=== PATIENT | male | born 1950 ===

== ENCOUNTER 2023-07-13 04:04 | Day surgery (SDC) | payer OTHER ==
[2023-07-09 12:53] VITALS: BMI 29.0
[2023-07-13] MEDS ORDERED: VANCOMYCIN/WATER FOR INJ (PEG) 1,000 MG/200 ML BAG IVPB ONE (11:14)
[2023-07-13] MEDS: VANCOMYCIN/WATER FOR INJ (PEG) 1,000 MG/200 ML BAG IVPB ONE (11:40)
[2023-07-13] MEDS ORDERED: GENTAMICIN SO4 80 MG/2 ML VIAL ONE (12:33)
[2023-07-13] MEDS ORDERED: VANCOMYCIN 1,000 MG VIAL (RESTRICTED TO ID ONLY) ONE (12:33)
[2023-07-13] MEDS: GENTAMICIN 80 MG PREMIXED IVPB 80 MG/100 ML BAG IVPB ONE (12:45)
[2023-07-13] MEDS ORDERED: AMPHOTERICIN B LIPOSOMAL 50 MG VIAL (RESTRICTED TO ID) IVPB ONE (13:00)
[2023-07-13] MEDS ORDERED: ceFAZolin SODIUM 1 GM VIAL ONE (13:36)
[2023-07-13] MEDS ORDERED: FENTANYL CITRATE/PF 50 MCG/ML VIAL ONE ×5 (13:36→16:37)
[2023-07-13] MEDS ORDERED: BUPIVACAINE HCL/PF 0.5% (5MG/ML) 10 ML VIAL ONE (13:37)
[2023-07-13] MEDS ORDERED: DEXAMETHASONE SOD PHOSPHATE 4 MG/1 ML VIAL ONE (13:37)
[2023-07-13] MEDS ORDERED: LIDOCAINE HCL 1%, 10 MG/ML (20ML VIAL) ONE (13:37)
[2023-07-13] MEDS ORDERED: ACETAMINOPHEN INJECTION 100 ML IVPB ONE (13:38)
[2023-07-13] MEDS ORDERED: MIDAZOLAM HCL 2 MG/2 ML SINGLE DOSE VIAL ONE (13:40)
[2023-07-13] MEDS ORDERED: ONDANSETRON 4 MG/2 ML VIAL ONE (13:54)
[2023-07-13] MEDS: VANCOMYCIN 1,000 MG VIAL (RESTRICTED TO ID ONLY) IVPB ONE ×2 (14:06)
[2023-07-13] MEDS: AMPHOTERICIN B LIPOSOMAL 50 MG VIAL (RESTRICTED TO ID) IVPB ONE (14:06)
[2023-07-13] MEDS: GENTAMICIN SO4 80 MG/2 ML VIAL IVPB ONE ×2 (14:06)
[2023-07-13] MEDS: LIDOCAINE HCL 1%, 10 MG/ML (20ML VIAL) INF ONE (14:55)
[2023-07-13] MEDS: BUPIVACAINE HCL/PF 0.5% (5MG/ML) 10 ML VIAL IJ ONE (14:55)
[2023-07-13] MEDS ORDERED: ONDANSETRON 4 MG/2 ML VIAL IVPUSH PRN (15:43)
[2023-07-13] MEDS ORDERED: oxyCODONE HCL 5 MG TABLET PO PRN (15:43)
[2023-07-13] MEDS ORDERED: LACTATED RINGERS SOLUTION 1,000 ML IV SCH (15:45)
[2023-07-13 17:43] VITALS: RESP 16
[2023-07-13 17:48] VITALS: BP 142/76; PULSE 74; TEMP 97.6
== END 2023-07-13 18:27 | disposition home or self-care (01) ==
LOC: JASU-SURG 04:04
PROVIDERS: ATTEND Urology
PROC: 0VUS0JZ Supplement Penis with Synthetic Substitute, Open Approach (ICD-10-PCS; principal; 2023-07-13 13:00)
DX: N52.9 Male erectile dysfunction, unspecified (principal)
CPT/HCPCS: 54405; C1813; 94760; C2622; J0131; J0289